=== PATIENT | male | born 1990 | race Caucasian/White ===

== ENCOUNTER 2020-12-01 12:22 | Emergency (ER) | payer MEDICAID, SELFPAY ==
[2020-12-01] VITALS (7 sets, daily range): BP systolic 143–149; BP diastolic 87–99; PULSE 95–139; RESP 16–109; TEMP 36.8; O2SAT 97–98
--- NOTE | ~2020-12-01 | CT_ITS ---
EXAMINATION: CT brain wo con DATE: 12/01/2020 13:39 INDICATION: Altered mental state. Hallucinations. TECHNIQUE: Computed tomography (CT) of the head was performed without intravenous contrast. The mA wa s adjusted according to patient size. Iterative reconstruction technique was employed. Exam dose: 60 5.33 mGy-cm total exam DLP. COMPARISON: None FINDINGS: No intracranial mass lesion or hemorrhage or cerebrovascular accident. No midline shift or mass effect. Normal ventricular size. No subdural or epidural hematoma. There is partial mild opacification of ethmoid air cells bilaterally. There is a 10 mm mucus retentio n cyst or polyp of the medial aspect of the right frontal lobe. No fracture or bone destruction of the cranial vault. IMPRESSION: No significant intracranial abnormality Reviewed, dictated and finalized at [facility]. Reviewed, dictated and finalized at location [facility].
--- NOTE | ~2020-12-01 | XR_ITS ---
EXAMINATION: XR hand LT min 3V DATE: 12/01/2020 14:08 INDICATION: Left hand pain and swelling TECHNIQUE: Posteroanterior, oblique and lateral views of the left hand were obtained. COMPARISON: None. FINDINGS: Alignment is normal however the second, third and particularly the fourth fingers remain partially fl exed. No fracture. Joint spaces are normal. There is soft tissue swelling dorsal to the metacarpophal angeal joints and distal metacarpals. No periosteal reaction or cortical erosions. There is a 2.4 x 0 .5 cm radiopaque foreign body projecting over the soft tissues at the volar aspect of the wrist. IMPRESSION: 1. 2.4 x 0.5 cm radiopaque foreign body projecting over the soft tissues at the volar aspect of the w rist with appearance suggesting enlargement of glass. Correlate for history of penetrating trauma. Reviewed, dictated and finalized at location [facility]. IMPRESSION: 1. 2.4 x 0.5 cm radiopaque foreign body projecting over the soft tissues at the volar aspect of the wrist with appearance suggesting enlargement of glass. Cor relate for history of penetrating trauma.
[2020-12-01 12:53] LABS: Basophils Percent Auto 0.2 % (0.2-1.2); Eosinophils Percent Auto 0.1 % (0-4.4); Hematocrit 45.2 % (42.0-52.0); Hemoglobin 15.6 g/dL (14.0-18.0); Immature Granulocyte Absolute 0.11 K/mm3 (0.00-0.031); Mean Corpuscular HGB Conc 34.5 g/dl (32-36); Mean Corpuscular Hemoglobin 32.8 pg (26-34); Mean Corpuscular Volume 95.2 fl (80-100); Mean Platelet Volume 9.2 fl (7.4-10.4); Monocytes Absolute Auto 0.8 K/mm3 (0.1-0.6); Monocytes Percent Auto 7.1 % (2.6-8.5); Neutrophils Absolute Auto 6.8 K/mm3 (1.3-6.7); Neutrophils Percent Auto 61.6 % (45.5-73.1); Platelet Count Result 227 k/mm3 (150-375); Red Blood Count 4.75 M/mm3 (4.6-6.20); Red Cell Distribution Width 12.2 % (11.5-14.5)
[2020-12-01 13:01] LABS: Alanine Aminotransferase 56 U/L (4-50); Albumin Level 4.7 g/dL (3.5-5.1); Alkaline Phosphatase 67 U/L (38-126); Anion Gap 16 mmol/L (8-16); Aspartate Amino Transferase 53 U/L (17-59); Bilirubin,Total 1.8 mg/dL (0.2-1.3); Blood Urea Nitrogen 5 mg/dL (9-20); Calcium 8.5 mg/dL (8.4-10.2); Carbon Dioxide 21 mmol/L (22-30); Chloride 100 mmol/L (98-107); Estimated CRCL calculation 149 ml/min; Estimated Glomerular Filt Rate > 60; Glucose 164 mg/dL (65-110); Potassium 2.8 mmol/L (3.4-5.0); Sodium 137 mmol/L (137-145)
--- NOTE | 2020-12-01 13:02 | ECG_ITS ---
Measurements Intervals [place] Rate: 102 P: 42 UT: 141 QRS: 20 QRSD: 101 T: 34 QT: 345 QTc: 451 Interpretive Statements SINUS TACHYCARDIA BASELINE ARTIFACT- II, III, AVR, AVL, AVF BORDERLINE ECG Electronically Signed On 12-02-2020 7:26:02 CDT by Da Lundberg D.O.
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
[2020-12-01 13:23] LABS: Glucose Point of Care 122 mg/dl (65-105)
--- NOTE | 2020-12-01 13:29 | PC.NURSE ---
Pt to CT scan via stretcher at this time.
[2020-12-01 13:34] LABS: Add Urine Microscopic? NO; Appearance Urine Clear (Clear); Bilirubin Urine Negative (Negative); Blood Urine Negative (Negative); Color Urine Colorless (Yellow); Glucose Urine UA Negative (Negative); Ketones Urine Negative (Negative); Leukocyte Esterase Ur Negative LEU/UL (Negative); Nitrate Urine Negative (Negative); Protein Urine Negative (Negative); Urobilinogen Urine Negative mg/dL (<2.0)
[2020-12-01 13:39] LABS: INR 0.9; Prothrombin Time 11.8 Seconds (11.1-14.7)
[2020-12-01 13:39] LABS: Ethanol 433 mg/dL (<10)
[2020-12-01 13:42] LABS: Specific Grav Ur 1.003 (1.001-1.035)
[2020-12-01 13:42] LABS: Magnesium 2.2 mg/dL (1.6-2.3); Phosphorus 2.9 mg/dL (2.5-4.5)
[2020-12-01] MEDS: LORazepam INJ (*CRX) 2 MG/ML VIAL 0.5 MG IV PUSH (13:45)
[2020-12-01 13:51] LABS: Amphetamine Screen Urine Negative (Negative); Barbiturate Screen Urine Negative (Negative); Benzodiazepines Screen Urine Negative (Negative); Cannabinoid Screen Urine Negative (Negative); Cocaine Screen Urine Negative (Negative); Methadone Screen Urine Negative (Negative); Opiate Screen Urine Negative (Negative); Phencyclidine Screen Urine Negative (Negative)
[2020-12-01] MEDS: THIAMINE HCL INJ 100 MG, FOLIC ACID INJ 1 MG, MULTIVITAMINS-12 INJ VIAL 1 5 ML, MULTIVI... 125 MG IV CONT (14:04)
[2020-12-01 14:17] LABS: CRP < 0.5 mg/dL (<1.0); Uric Acid 5.6 mg/dL (3.5-8.5)
[2020-12-01 14:38] LABS: Erythrocyte Sedimentation Rate 3 mm/hr (0-20)
--- NOTE | 2020-12-01 15:19 | PC.NURSE ---
Pt becoming agitated and trying to get up from stretcher, repeatedly says Ana got to get out of here. I dont wanna be here, I just dont want all of this. while holding up IV drips. This RN encouraged pt to stay in bed and would get the PA, Oneyda Shine PA-C and EDP Dr Carroll at bedside at this time to examine arm and discuss POC w/ pt. Pts father left and and plans to come back and ck on pt later. KCL and Thiamine cont to infuse in bilat IVs. Pt on tele monitor. VSS.
[2020-12-01] MEDS: POTASSIUM CHLORIDE 20 MEQ TABLET 40 MEQ PO (15:57)
== END 2020-12-01 17:00 | disposition left against medical advice (07) ==
PROVIDERS: Emergency Medicine; Physician Assistant; Emergency Provider Emergency Medicine
DX: E87.6 Hypokalemia (principal); F10.129 Alcohol abuse with intoxication, unspecified; Y90.8 Blood alcohol level of 240 mg/100 ml or more; R00.0 Tachycardia, unspecified
CPT/HCPCS: 36415; 70450; 73130; 80053; 80307; 81003; 82948; 83735; 84100; 84550; 85025; 85610; 85652; 86140; 93005; 96365; 96366; 96368; 96375; 99284; A9270; J2060; J3411; J3475; J3480; J7030

== ENCOUNTER 2020-12-01 23:53 | Inpatient (IN) | payer MEDICAID, SELFPAY ==
--- NOTE | ~2020-12-01 | XR_ITS ---
EXAMINATION: XR chest 1V portable DATE: 12/02/2020 00:25 INDICATION: Chest pain TECHNIQUE: frontal view of the chest was obtained. COMPARISON: None FINDINGS: The lungs are clear with no focal airspace opacities, pulmonary edema, pleural effusion or pneumothor ax. The cardiomediastinal silhouette is normal. Visualized bones and soft tissues are unremarkable. IMPRESSION: 1. Normal chest radiograph. Reviewed, dictated and finalized at location [facility]. IMPRESSION: 1. Normal chest radiograph.
--- NOTE | ~2020-12-01 | US_ITS ---
EXAMINATION: US abdomen limited DATE: 12/03/2020 09:29 INDICATION: Elevated liver function tests TECHNIQUE: Multiple grayscale and Doppler ultrasound images of the abdomen were obtained. COMPARISON: None available FINDINGS: Bowel gas obscures visualization of the pancreas. The visualized portions of the pancreas a re unremarkable. The liver is normal with normal echogenicity and echotexture. No surface nodularity. Normal hepatopetal flow in the main portal vein. The gallbladder is normal with no abnormal wall thi ckening, pericholecystic fluid or stones. The normal common bile duct measures 4 mm. There was no son ographic Costello sign. IMPRESSION: 1. Normal sonographic study of the gallbladder. Reviewed, dictated and finalized at location [facility].
[2020-12-01 23:54] VITALS: BP 137/94; PULSE 102; RESP 23; TEMP 37.3; O2SAT 94
[2020-12-02] VITALS (26 sets, daily range): BP systolic 111–162; BP diastolic 77–94; PULSE 83–136; RESP 16–34; TEMP 36.4–36.9; O2SAT 89–99; BMI 25.4
--- NOTE | 2020-12-02 | ECG_ITS ---
Rate 98 RI 148 QRSd 90 QT 347 QTc 445 --[place]-- P 53 QRS 37 T 47 SINUS RHYTHM NORMAL ECG Electronically Signed On 12-02-2020 9:13:14 CDT by Da MENESES
--- NOTE | 2020-12-02 00:18 | PC.NURSE ---
XY to room at this time.
--- NOTE | 2020-12-02 00:38 | ED.GENADULT ---
HPI - General Adult General Chief complaint: Alcohol Stated complaint: ETOH withdrawl Time Seen by Provider: 12/01/20 23:58 History of Present Illness HPI narrative: Patient 30-year-old gentleman who presents the emergency department with chief complaint of chest pain and alcohol withdrawal. The patient reports he decided to stop drinking and normally is drinking about 1/5 of hard liquor daily. Patient states his last drink was in the last 72hours although he was seen here earlier this morning and had a blood alcohol level that was significantly elevated. The patient states that he went home because he decided did not stay in the hospital and has proceeded to have chest discomfort and also has noticed that he has become more more tremulous and tachycardic. Patient denies seizure denies visual or auditory hallucinations. Patient denies suicidal or homicidal ideation. Related Data Home Medications Medication Instructions Recorded Confirmed No Home Medications 12/01/20 12/01/20 Allergies Allergy/AdvReac Type Severity Reaction Status Date / Time aspirin Allergy Unknown Verified 12/02/20 00:15 Penicillins Allergy Unknown Verified 12/02/20 00:15 Review of Systems Review of Systems: Narrative: A 10 system review of systems was completed on the patient and is negative except for what is stated in the HPI. Nursing and ancillary documentation was reviewed. [facility] Past Medical History Medical History History of alcohol abuse Social History Social History Alcohol intake: current Gender identity (if verbalized by the patient): Male Exam Narrative: Exam Narrative: GENERAL: Well-appearing, well-nourished, and in no acute distress. HEAD: Normocephalic, atraumatic. EYES: PERRLA and EOMI. ENT: Nares clear, no rhinorrhea or epistaxis. Mucous membranes moist. NECK: Supple. CHEST: Clear to auscultation. No respiratory distress. HEART: Regular rate and rhythm. No murmur heard. Normal peripheral pulses. ABDOMEN: Soft, nontender, nondistended, normal active bowel sounds. EXTREMITIES: Normal range of motion. No edema. SKIN: Warm, dry, no rash. NEURO: No focal deficits. Alert and oriented x3. PSYCH: Normal mood and affect. Course Vital Signs Vital signs: Vital Signs Temperature 37.3 C 12/01/20 23:54 Pulse Rate 102 H 12/01/20 23:54 Respiratory Rate 23 H 12/01/20 23:54 Blood Pressure 137/94 H 12/01/20 23:54 Pulse Oximetry 94 12/01/20 23:54 Temperature 37.3 C 12/01/20 23:54 Pulse Rate 102 H 12/01/20 23:54 Respiratory Rate 23 H 12/01/20 23:54 Blood Pressure 137/94 H 12/01/20 23:54 Pulse Oximetry 94 12/01/20 23:54 Medical Decision Making Vital Signs Vital Signs: Vital Signs Temperature 37.3 C 12/01/20 23:54 Pulse Rate 102 H 12/01/20 23:54 Respiratory Rate 23 H 12/01/20 23:54 Blood Pressure 137/94 H 12/01/20 23:54 Pulse Oximetry 94 12/01/20 23:54 Temperature 37.3 C 12/01/20 23:54 Pulse Rate 102 H 12/01/20 23:54 Respiratory Rate 23 H 12/01/20 23:54 Blood Pressure 137/94 H 12/01/20 23:54 Pulse Oximetry 94 12/01/20 23:54 Lab Data Result diagrams: 12/02/20 00:31 12/02/20 00:31 Labs: Lab Results 12/02/20 12/02/20 12/02/20 Range/Units 00:31 00:31 00:31 WBC 11.1 H (4.5-10.0) K/mm3 RBC 4.41 L (4.6-6.20) M/mm3 Hgb 14.7 (14.0-18.0) g/dL Hct 41.6 L (42.0-52.0) % MCV 94.3 (80-100) fl MCH 33.3 (26-34) pg MCHC 35.3 (32-36) g/dl RDW 12.2 (11.5-14.5) % Plt Count 191 (150-375) k/mm3 MPV 8.8 (7.4-10.4) fl Immature Gran % (Auto) 0.4 (0-0.5) % Neut % (Auto) 63.7 (45.5-73.1) % Lymph % (Auto) 27.1 (18.3-44.2) % [place] % (Auto) 8.3 (2.6-8.5) % Eos % (Auto) 0.1 (0-4.4) % Baso % (Auto) 0.4 (0.2-1.2) % Lymph # (Auto) 3.00 (0.9-
[2020-12-02] MEDS: SODIUM CHLORIDE 0.9% IV 1,000 ML 999 ML IV CONT ×2 (00:40→01:35)
[2020-12-02] MEDS: LORazepam INJ (*CRX) 2 MG/ML VIAL 1 MG IV PUSH ×5 (00:42→19:37)
[2020-12-02] MEDS: ONDANSETRON INJ 4 MG/2 ML VIAL IV PUSH ×4 (00:42→10:27)
[2020-12-02 00:43] LABS: Basophils Percent Auto 0.4 % (0.2-1.2); Eosinophils Percent Auto 0.1 % (0-4.4); Hematocrit 41.6 % (42.0-52.0); Hemoglobin 14.7 g/dL (14.0-18.0); Immature Granulocyte Absolute 0.04 K/mm3 (0.00-0.031); Immature Granulocyte Percent A 0.4 % (0-0.5); Lymphocytes Percent Auto 27.1 % (18.3-44.2); Mean Corpuscular HGB Conc 35.3 g/dl (32-36); Mean Corpuscular Hemoglobin 33.3 pg (26-34); Mean Corpuscular Volume 94.3 fl (80-100); Mean Platelet Volume 8.8 fl (7.4-10.4); Monocytes Absolute Auto 0.9 K/mm3 (0.1-0.6); Monocytes Percent Auto 8.3 % (2.6-8.5); Neutrophils Absolute Auto 7.1 K/mm3 (1.3-6.7); Neutrophils Percent Auto 63.7 % (45.5-73.1); Platelet Count Result 191 k/mm3 (150-375); Red Blood Count 4.41 M/mm3 (4.6-6.20); Red Cell Distribution Width 12.2 % (11.5-14.5); White Blood Count 11.1 K/mm3 (4.5-10.0)
[2020-12-02 00:51] LABS: Ethanol 221 mg/dL (<10)
[2020-12-02 00:53] LABS: Alanine Aminotransferase 59 U/L (4-50); Albumin Level 4.4 g/dL (3.5-5.1); Alkaline Phosphatase 65 U/L (38-126); Anion Gap 13 mmol/L (8-16); Aspartate Amino Transferase 77 U/L (17-59); Bilirubin,Total 2.2 mg/dL (0.2-1.3); Blood Urea Nitrogen 5 mg/dL (9-20); Calcium 8.8 mg/dL (8.4-10.2); Carbon Dioxide 23 mmol/L (22-30); Chloride 97 mmol/L (98-107); Estimated Glomerular Filt Rate > 60; Glucose 138 mg/dL (65-110); Lipase 242 U/L (23-300); Magnesium 1.9 mg/dL (1.6-2.3); Potassium 2.9 mmol/L (3.4-5.0); Sodium 133 mmol/L (137-145)
[2020-12-02 00:55] LABS: Lactic Acid Reflex 3.3 mmol/L (0.7-2.1)
[2020-12-02 01:05] LABS: Troponin I < 0.012 ng/mL (0.000-0.034)
[2020-12-02] MEDS: THIAMINE HCL 200 MG/2 ML VIAL 100 MG IV PUSH (01:30)
--- NOTE | 2020-12-02 01:49 | PC.NURSE ---
Potassium chloride admin verified with JACEK Deleon.
--- NOTE | 2020-12-02 02:09 | PM.IMHP ---
H&P: HPI History of Present Illness Date/Time: 12/02/20 02:09 Chief Complaint: TREMORS Narrative: THIS IS A 30-YEAR-OLD MALE WITH PAST MEDICAL HISTORY SIGNIFICANT FOR ALCOHOL DEPENDENCE, TOBACCO DEPENDENCE. PATIENT PRESENTED EARLIER TO THE EMERGENCY ROOM THE DAY BEFORE STATING THAT HE WANTED TO QUIT ALCOHOL AND HE ENDED UP LEAVING TO LATER COME BACK DUE TO WORSENING TREMORS , NAUSEA AND VOMITING. PRELIMINARY WORKUP SHOWED A ALCOHOL LEVEL OF 400 WHEN INITIALLY CAME TO THE EMERGENCY ROOM. AT THE TIME OF MY VISIT TO GO HOME PATIENT WAS VOMITING AND VERY UNCOMFORTABLE. HE DENIES ANY FEVERS CHILLS OR RIGORS. 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 STATES THAT HE WANTS TO QUIT FOR GOOD. HE WAS ALSO FOUND TO BE VERY TACHYCARDIC AND TREMULOUS. Review of Systems Review of Systems: Narrative: TREMORS NAUSEA VOMITING Constitutional: Constitutional: Denies chills, Denies fatigue and Denies fever(s) Eyes: Eyes: Denies change in vision ENT: Denies dysphagia, Denies nasal congestion, Denies nasal discharge, Denies nasal obstruction and Denies odynophagia Cardiovascular: Cardiovascular: Reports rapid heart rate, Denies irregular heart rhythm, Denies lightheadedness, Denies radiating jaw, neck or arm pain and Denies dyspnea Respiratory: Respiratory: Denies cough and Denies dyspnea Gastrointestinal: Gastrointestinal: Denies abdominal pain, Reports nausea and Reports vomiting Genitourinary: Genitourinary: Reports no additional male genitourinary complaints Musculoskeletal: Musculoskeletal: Reports no additional musculoskeletal complaints Integumentary/Breasts: Skin/Breast: Reports system reviewed and no additional complaints, except as docu Neurologic: Comments: TREMORS Psychiatric: Psychiatric: Reports no additional psychiatric complaints Endocrine: Endocrine: Reports no additional endocrine complaints Hematologic/Lymphatic: Hematologic/Lymphatic: Reports no additional hematologic/lymphatic complaints Allergic/Immunologic: Allergic/Immunologic: Reports no additional allergic/immunologic complaints [facility] Past Medical History Medical History History of alcohol abuse Social History Social History Alcohol intake: current Gender identity (if verbalized by the patient): Male Meds Home Medications and Allergies Home Medications Medication Instructions Recorded Confirmed Type No Home Medications 12/01/20 12/01/20 History Allergies Allergy/AdvReac Type Severity Reaction Status Date / Time aspirin Allergy Unknown Verified 12/02/20 00:15 Penicillins Allergy Unknown Verified 12/02/20 00:15 Vital Signs Vital Signs - 24 hr 12/01/20 23:54 Temperature 99.1 F Pulse Rate 102 H Respiratory Rate 23 H Blood Pressure 137/94 H Pulse Oximetry 94 Exam Narrative: Exam Narrative: SITTING IN THE [place] [facility] Const: General: comfortable, well developed, alert, awake and in distress ( VOMITING) Nutritional Appearance: average body habitus Orientation/consciousness: patient oriented x3 HENMT: Head: normal to inspection, normocephalic and atraumatic Ears: hearing grossly normal bilaterally General nose exam: Normal external nose present Face and sinus: normal facial exam Eyes: General: appearance normal, both eyes and all related structures Sclera: sclerae normal Pupils: Equal, round and reactive pupils present EOM: EOMs intact bilaterally Neck: Neck: full ROM, no lymphadenopathy and no JVD Thyroid: thyroid normal Lymphatic: no lymphadenopathy noted Resp: Effort & Inspection: normal respiratory effort and able to speak in complete sentences Auscultation: clear to auscultation bilaterally Cardio: Jugular venous distension: no JVD Rate: tachycardic Rhythm: regular rhythm Heart sounds: S1 normal heart sound present and S2 normal heart sound present GI: Inspection: normal to inspection GI Palp:
[2020-12-02] MEDS: THIAMINE HCL INJ 100 MG, FOLIC ACID INJ 1 MG, MULTIVITAMINS-12 INJ VIAL 1 5 ML, MULTIVI... IV CONT (02:49)
--- NOTE | 2020-12-02 03:14 | PC.NURSE ---
Potassium chloride rate change for patient comfort.
[2020-12-02 03:37] LABS: Reflex Lactic Acid Yes or No Add Lactic
[2020-12-02 04:04] LABS: Lactic Acid 1.9 mmol/L (0.7-2.1)
--- NOTE | 2020-12-02 04:20 | ADMGEN ---
This patient, Samy Luke, was admitted to Intensive Care Unit-1. Patient/family oriented to hospital policies and general routines including ID bracelet, bed and alarms, visiting hours, pain management, procedures, bathroom and other care routines, personal items, smoking policy, room service/diet, and visiting hours. Information on how to activate the Rapid Response Team has been discussed. Patient/Family are encouraged to report perceived risks to care and to ask questions if they do not understand what they are told or what they should do.
[2020-12-02] MEDS: chlordiazePOXIDE (*CRX) 25 MG CAPSULE 50 MG PO ×3 (05:04→18:33)
[2020-12-02] MEDS: chlordiazePOXIDE (*CRX) 25 MG CAPSULE PO (05:05)
[2020-12-02] MEDS: LACTATED RINGERS 1,000 ML 999 ML IV CONT (08:21)
--- NOTE | 2020-12-02 09:43 | PM.IMPN ---
Progress Note: A&P Assessment and Plan (1) EtOH dependence: Code(s): F10.20 - Alcohol dependence, uncomplicated Status: Acute Assessment and Plan: patient states he drinks about 2/5 of hard liquor daily and has been trying to stop drinking. In the ED patient stated his last drink was about 72 hours prior to admission. He stated he has not had a drink for 2 days. - Patient's initial alcohol levels were 433 - patient may be undergoing alcohol intoxication and withdrawals (2) Alcohol withdrawal syndrome: Qualifiers: Complication of substance-induced condition: uncomplicated Qualified Code(s): F10.230 - Alcohol dependence with withdrawal, uncomplicated Code(s): F10.239 - Alcohol dependence with withdrawal, unspecified Status: Acute Assessment and Plan: continue CIWA score - patient on Librium 50 mg q.6 hours - IV Ativan as need - if CIWA scores worsened patient becomes more agitated or anxious may require Precedex infusion - monitor closely for DTs (3) Tobacco dependence: Code(s): F17.200 - Nicotine dependence, unspecified, uncomplicated Status: Acute Assessment and Plan: patient states he smokes about a pack a day of tobacco - denies any marijuana use - counseled patient on cessation, stated he has to 1st quit drinking (4) Acute hypokalemia: Code(s): E87.6 - Hypokalemia Status: Acute Assessment and Plan: potassium was repleted, will check CMP at noon today. (5) Nausea and vomiting: Code(s): R11.2 - Nausea with vomiting, unspecified Status: Acute Assessment and Plan: Resolved - Zofran p.r.n. Additional Plan code status full code. This dictation may have been done utilizing a voice recognition system. Attempts have been made to correct errors. However, there may be uncorrected grammatical, spelling, and recognition errors present. Due to a high probability of clinically significant, life threatening deterioration, the patient required my highest level of preparedness to intervene emergently and I personally spent this critical care time directly and personally managing the patient. This critical care time included obtaining a history; examining the patient; pulse oximetry; ordering and review of studies; arranging urgent treatment with development of a management plan; evaluation of patient's response to treatment; frequent reassessment; and discussions with other providers. It was exclusive of separately billable procedures and treating other patients and teaching time. Please see Assessment and Plan section and the rest of the note for further information on patient assessment and treatment Subjective Date/time seen: 12/02/20 09:43 Interval history: The atrial male with past medical history of alcohol dependence and tobacco dependence presented with alcohol intoxication and withdrawal. Patient seen and examined this morning, has been requiring intermittent Ativan. CIWA score was 22 this morning. Patient is tremulous, awake answers to questions states he smokes about 1 packet per day of cigarettes, denies any illicit drug use. Denies any chest pain, abdominal pain, nausea, vomiting at this time Review of Systems Review of Systems: All systems reviewed & are unremarkable except as noted in HPI and below Exam Const: General: comfortable and no acute distress HENMT: Mouth: Yes moist mucous membranes Eyes: Sclera: sclerae normal Pupils: Equal, round and reactive pupils present Neck: Neck: no JVD Thyroid: thyroid normal Lymphatic: lymphadenopathy not noted Resp: Effort & Inspection: normal respiratory effort Auscultation: clear to auscultation bilaterally Cardio: Rate: regular rate Rhythm: regular rhythm GI: Inspection: non-distended GI Palp: Yes Soft to palpation and No Tenderness to palpation present (GI) Auscultation: normal bowel sounds : Other: deferred Urinary Catheter: Urina
[2020-12-02 11:58] LABS: Alanine Aminotransferase 72 U/L (4-50); Albumin Level 3.8 g/dL (3.5-5.1); Alkaline Phosphatase 58 U/L (38-126); Anion Gap 5 mmol/L (8-16); Aspartate Amino Transferase 104 U/L (17-59); Bilirubin,Total 3.6 mg/dL (0.2-1.3); Blood Urea Nitrogen 4 mg/dL (9-20); Calcium 8.3 mg/dL (8.4-10.2); Carbon Dioxide 26 mmol/L (22-30); Chloride 103 mmol/L (98-107); Estimated CRCL calculation 171 ml/min; Estimated Glomerular Filt Rate > 60; Glucose 106 mg/dL (65-110); Potassium 3.5 mmol/L (3.4-5.0); Sodium 134 mmol/L (137-145)
--- NOTE | 2020-12-02 14:17 | PCNSR ---
On 12/02/20, the student, Josette Leary, provided care and completed [place] documentation on this patient. I have reviewed the student's documentation and agree with the findings. In addition, agree with folic acid and thiamine supplementation. Noted potassium has been replaced. Ensure Compact (220kcal, 9g protein) is being ordered BID which is appropriate.
[2020-12-03] VITALS (10 sets, daily range): BP systolic 96–123; BP diastolic 72–91; PULSE 86–158; RESP 16–20; TEMP 36.4–37.2; O2SAT 94–98
[2020-12-03] MEDS: chlordiazePOXIDE (*CRX) 25 MG CAPSULE 50 MG PO ×3 (00:16→11:56)
[2020-12-03] MEDS: ONDANSETRON INJ 4 MG/2 ML VIAL IV PUSH (04:16)
[2020-12-03] MEDS: SODIUM CHLORIDE 0.9% IV 1,000 ML 999 ML IV CONT (04:16)
[2020-12-03] MEDS: LORazepam INJ (*CRX) 2 MG/ML VIAL 1 MG IV PUSH (04:16)
[2020-12-03 04:26] LABS: Basophils Percent Auto 0.3 % (0.2-1.2); Eosinophils Absolute Auto 0.2 K/mm3 (0-0.3); Eosinophils Percent Auto 2.4 % (0-4.4); Hemoglobin 14.7 g/dL (14.0-18.0); Immature Granulocyte Absolute 0.02 K/mm3 (0.00-0.031); Immature Granulocyte Percent A 0.3 % (0-0.5); Lymphocytes Absolute Auto 1.79 K/mm3 (0.9-3.2); Lymphocytes Percent Auto 25.3 % (18.3-44.2); Mean Corpuscular HGB Conc 34.2 g/dl (32-36); Mean Corpuscular Hemoglobin 33.2 pg (26-34); Mean Corpuscular Volume 97.1 fl (80-100); Mean Platelet Volume 9.4 fl (7.4-10.4); Monocytes Absolute Auto 0.5 K/mm3 (0.1-0.6); Monocytes Percent Auto 7.1 % (2.6-8.5); Neutrophils Absolute Auto 4.6 K/mm3 (1.3-6.7); Neutrophils Percent Auto 64.6 % (45.5-73.1); Platelet Count Result 144 k/mm3 (150-375); Red Blood Count 4.43 M/mm3 (4.6-6.20); Red Cell Distribution Width 12.1 % (11.5-14.5); White Blood Count 7.1 K/mm3 (4.5-10.0)
[2020-12-03 04:41] LABS: Alanine Aminotransferase 107 U/L (4-50); Albumin Level 4.2 g/dL (3.5-5.1); Alkaline Phosphatase 100 U/L (38-126); Anion Gap 7 mmol/L (8-16); Aspartate Amino Transferase 147 U/L (17-59); Bilirubin,Total 5.1 mg/dL (0.2-1.3); Blood Urea Nitrogen 5 mg/dL (9-20); Calcium 8.8 mg/dL (8.4-10.2); Carbon Dioxide 25 mmol/L (22-30); Chloride 104 mmol/L (98-107); Estimated CRCL calculation 131 ml/min; Estimated Glomerular Filt Rate > 60; Glucose 114 mg/dL (65-110); Lipase 208 U/L (23-300); Magnesium 2.1 mg/dL (1.6-2.3); Phosphorus 3.5 mg/dL (2.5-4.5); Potassium 3.3 mmol/L (3.4-5.0); Sodium 136 mmol/L (137-145)
[2020-12-03] MEDS: POTASSIUM CHLORIDE 20 MEQ TABLET 40 MEQ PO (08:17)
[2020-12-03] MEDS: FOLIC ACID 1 MG/0.2 ML INJ IV PUSH (08:17)
[2020-12-03] MEDS: THIAMINE HCL 200 MG/2 ML VIAL 100 MG IV PUSH (08:18)
[2020-12-03] MEDS: SODIUM CHLORIDE 0.9% IV 500 ML IV CONT (08:24)
[2020-12-03] MEDS: LACTATED RINGERS 1,000 ML 100 ML IV CONT (08:25)
[2020-12-03 08:49] LABS: Hepatitis B Surface Antigen Negative (Negative)
[2020-12-03 08:55] LABS: HAV RESULT Negative (Negative); Hepatitis B Core IgM Result Negative (Negative)
[2020-12-03 09:06] LABS: Hepatitis C Virus Antibody Negative (Negative)
--- NOTE | 2020-12-03 09:47 | PM.IMPN ---
Progress Note: A&P Assessment and Plan (1) EtOH dependence: Code(s): F10.20 - Alcohol dependence, uncomplicated Status: Acute Assessment and Plan: patient states he drinks about 2/5 of hard liquor daily and has been trying to stop drinking. In the ED patient stated his last drink was about 72 hours prior to admission. He stated he has not had a drink for 2 days. - Patient's initial alcohol levels were 433 - patient may be undergoing alcohol intoxication and withdrawals - feels better today, receive 3 doses of ativan since yesterday (2) Alcohol withdrawal syndrome: Qualifiers: Complication of substance-induced condition: uncomplicated Qualified Code(s): F10.230 - Alcohol dependence with withdrawal, uncomplicated Code(s): F10.239 - Alcohol dependence with withdrawal, unspecified Status: Acute Assessment and Plan: continue CIWA score - patient on Librium 50 mg q.6 hours - IV Ativan as need - if CIWA scores worsened patient becomes more agitated or anxious may require Precedex infusion - monitor closely for DTs (3) Tobacco dependence: Code(s): F17.200 - Nicotine dependence, unspecified, uncomplicated Status: Acute Assessment and Plan: patient states he smokes about a pack a day of tobacco - denies any marijuana use - counseled patient on cessation, stated he has to 1st quit drinking (4) Acute hypokalemia: Code(s): E87.6 - Hypokalemia Status: Acute Assessment and Plan: will replete potassium (5) Nausea and vomiting: Code(s): R11.2 - Nausea with vomiting, unspecified Status: Acute Assessment and Plan: Resolved - Zofran p.r.n. Additional Plan discussed with patient updated with his condition and plan of care. Code status full code Disposition: Patient can transferred to medical floor Subjective Date/time seen: 12/03/20 09:47 Interval history: Interval history: The atrial male with past medical history of alcohol dependence and tobacco dependence presented with alcohol intoxication and withdrawal. 12/03/2020: Pt seen and examined. sitting up in chair feeling better, pt has received 3 doses of ativan since yesterday CIWA scores have been low. Notrmeors noted. Patient seen and examined this morning, has been requiring intermittent Ativan. CIWA score was 22 this morning. Patient is tremulous, awake answers to questions states he smokes about 1 packet per day of cigarettes, denies any illicit drug use. Denies any chest pain, abdominal pain, nausea, vomiting at this time. Good UO. pt does get tachycardic intermittently. Denies chest pain, SOB, N/V, abd pain Review of Systems Review of Systems: All systems reviewed & are unremarkable except as noted in HPI and below Exam Const: General: comfortable and no acute distress HENMT: Mouth: Yes moist mucous membranes Eyes: Sclera: sclerae normal Pupils: Equal, round and reactive pupils present Neck: Neck: no JVD Thyroid: thyroid normal Lymphatic: lymphadenopathy not noted Resp: Effort & Inspection: normal respiratory effort Auscultation: clear to auscultation bilaterally Cardio: Rate: regular rate Rhythm: regular rhythm GI: Inspection: non-distended GI Palp: Yes Soft to palpation and No Tenderness to palpation present (GI) Auscultation: normal bowel sounds : Other: deferred Urinary Catheter: Urinary Catheter: urine clear Skin: General skin exam: normal color and no rashes or lesions noted Neuro: Cranial nerves: Yes Equal, round and reactive pupils present Other: Pt awake, alert, oriented. non focal Extrem: General: normal to inspection, no edema and no pedal edema Psych: Mental Status: mental status grossly normal Affect: normal affect Objective Data Vital Signs Vital Signs: Vital Signs - 24 hr 12/02/20 10:00 12/02/20 12:00 12/02/20 14:00 Temperature Pulse Rate 83 83 94 Pulse Rate [Bilateral Pedal (Dorsalis Pedis) Pa
[2020-12-03] MEDS: HYDROcodone/acetaminophen (*CRX) 5-325 MG TABLET 1 TAB PO ×2 (11:56→17:04)
--- NOTE | 2020-12-03 12:35 | PC.NURSE ---
This patient, Samy Luke, was transferred to [[id number]] on 12/03/20 at 1235. Personal belongings sent with patient. Report given to [RANDALL READ]. Appropriate documentation sent with patient.
--- NOTE | 2020-12-03 13:38 | PCNFU ---
Nutrition Follow-Up Complete: Inadequate oral food intake related to alcohol withdraw as evidence by refusal of breakfast and incoherent mental status. Meet estimated nutritional needs. Patient is meeting current goal. Will continue to meet goal. Pt current nutrition is Regular. Last recorded weight is 84.8 kg. 12/02/20 85.2 kg per EMR. Bowel Motility: Last BM: 12/03 x4 Labs Reviewed: Hgb 14.7, Hct 41.6, Alb 4.4, Na 133, K 2.9, BUN 5, Cr .7, Glu 138 Meds Noted: [place], Librium, Folic Acid, Lactate Ringer's @ 100 mls/hr, Ativan, Zofran, Thiamine. Additional Notes: Saw patient when he was in the ICU. Patient reports having a poor appetite due to nausea and vomiting upon arrival to the hospital. Patient is unaware of any weight changes. Appetite has improved and 100% of meals are being consumed. No skin break down. Will continue to monitor weight, bowel motility and meal consumption. Follow up in 5 days.
--- NOTE | 2020-12-03 13:56 | PCNSR ---
On 12/03/20, the student, Josette Leary, provided care and completed SeeJay documentation on this patient. I have reviewed the student's documentation and agree with the findings. Potassium replacement continues.
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
--- NOTE | 2020-12-03 19:53 | PC.NURSE ---
1750 patient leaving AMA. patient states having all belongings and that he has a ride in the parking lot. patient is aware that by leaving ama he will not get any scripts or instructions. pvu.
== END 2020-12-03 17:50 | disposition left against medical advice (07) | DRG 770 ==
LOC: ANHED 12-02 01:51 → ANHICU 12-02 15:56 → ANH3MEDSUR 12-04 12:45 → ANHICU 12-04 12:45
PROVIDERS: Internal Medicine; Admitting Provider Internal Medicine; Emergency Provider Emergency Medicine; Visit Provider Family Medicine
DX: F10.230 Alcohol dependence with withdrawal, uncomplicated (principal); F10.229 Alcohol dependence with intoxication, unspecified; Y90.9 Presence of alcohol in blood, level not specified; E87.6 Hypokalemia; R11.2 Nausea with vomiting, unspecified; F17.210 Nicotine dependence, cigarettes, uncomplicated
CPT/HCPCS: 36415; 71045; 76705; 80053; 80074; 80307; 83605; 83690; 83735; 84100; 84484; 85025; 93005; 96361; 96374; 96375; 99285; A9270; J2060; J2405; J3411; J3475; J3480; J7030; J7040; J7060; J7120; J7121

== ENCOUNTER 2021-01-25 13:49 | Emergency (ER) | payer OTHER, SELFPAY ==
[2021-01-25 13:57] VITALS: BP 125/89; PULSE 133; RESP 18; TEMP 36.4; O2SAT 96
[2021-01-25 14:24] LABS: Basophils Percent Auto 0.2 % (0.2-1.2); Eosinophils Absolute Auto 1.1 K/mm3 (0-0.3); Eosinophils Percent Auto 8.9 % (0-4.4); Hematocrit 51.4 % (42.0-52.0); Hemoglobin 18.2 g/dL (14.0-18.0); Immature Granulocyte Absolute 0.03 K/mm3 (0.00-0.031); Immature Granulocyte Percent A 0.2 % (0-0.5); Lymphocytes Absolute Auto 3.29 K/mm3 (0.9-3.2); Lymphocytes Percent Auto 27.1 % (18.3-44.2); Mean Corpuscular HGB Conc 35.4 g/dl (32-36); Mean Corpuscular Hemoglobin 34.3 pg (26-34); Mean Platelet Volume 9.4 fl (7.4-10.4); Monocytes Absolute Auto 1.1 K/mm3 (0.1-0.6); Neutrophils Absolute Auto 6.6 K/mm3 (1.3-6.7); Neutrophils Percent Auto 54.6 % (45.5-73.1); Platelet Count Result 243 k/mm3 (150-375); Red Cell Distribution Width 12.9 % (11.5-14.5); White Blood Count 12.2 K/mm3 (4.5-10.0)
[2021-01-25 14:27] VITALS: BP 144/105; PULSE 112; RESP 20; O2SAT 97
[2021-01-25 14:44] LABS: Alanine Aminotransferase 34 U/L (4-50); Albumin Level 4.9 g/dL (3.5-5.1); Alkaline Phosphatase 90 U/L (38-126); Anion Gap 17 mmol/L (8-16); Aspartate Amino Transferase 45 U/L (17-59); Bilirubin,Total 2.9 mg/dL (0.2-1.3); Blood Urea Nitrogen 3 mg/dL (9-20); Calcium 9.1 mg/dL (8.4-10.2); Carbon Dioxide 28 mmol/L (22-30); Chloride 97 mmol/L (98-107); Estimated CRCL calculation 152 ml/min; Estimated Glomerular Filt Rate > 60; Glucose 122 mg/dL (65-110); Potassium 3.1 mmol/L (3.4-5.0); Sodium 142 mmol/L (137-145)
[2021-01-25] MEDS: ONDANSETRON INJ 4 MG/2 ML VIAL IV PUSH (15:30)
[2021-01-25] MEDS: SODIUM CHLORIDE 0.9% IV 1,000 ML 999 ML IV CONT (15:30)
[2021-01-25 15:50] LABS: INR 0.8; Prothrombin Time 11.2 Seconds (11.1-14.7)
[2021-01-25 15:51] LABS: Partial Thromboplastin Time 28.7 SECONDS (22.3-36.8)
[2021-01-25 16:25] VITALS: BP 122/89; PULSE 110; RESP 20; O2SAT 99
--- NOTE | 2021-01-25 16:39 | PC.NURSE ---
NTG PLACED AND IRRIGATED. CLEAR RETURN. NO BLOOD NOTED.
--- NOTE | 2021-01-25 17:12 | ED.NAVMDI ---
HPI - Nausea/Vomiting/Diarrhea General Chief complaint: Nausea/Vomiting/Diarrhea Stated complaint: vomiting blood x2 days Time Seen by Provider: 01/25/21 14:27 History of Present Illness HPI Narrative: Patient is a 31-year-old male who presents ER with reports of hematemesis. Reports has had 6 episodes over the last couple days where he is vomiting only bright red blood. Reports regular retching. Patient is an alcoholic and drinks 1/5 of hard liquor a day. Reports he has had about a pint today. No fevers or chills or sweats. Reports abdominal discomfort from the retching. No dark black stools. He has had some diarrhea with this. Related Data Allergies Allergy/AdvReac Type Severity Reaction Status Date / Time aspirin Allergy Unknown Verified 12/02/20 00:15 Penicillins Allergy Unknown Verified 12/02/20 00:15 Review of Systems Review of Systems: All systems reviewed & are unremarkable except as noted in HPI and below Constitutional: Constitutional: Denies chills, Denies fever(s) and Denies weakness ENT: Denies nasal congestion and Denies sore throat Respiratory: Respiratory: Denies cough, Denies dyspnea and Denies wheezing Gastrointestinal: Gastrointestinal: Reports abdominal pain, Denies bloating, Reports diarrhea, Reports nausea and Reports vomiting Genitourinary: Genitourinary: Denies dysuria and Denies urinary frequency PMFSH Past Medical History Medical History History of alcohol abuse Family History Family History (Updated 12/02/20 @ 04:51 by Sloane Rosenberg RN) Father Obese Mother Renal failure Social History Social History Smoking packs per day: 1 Smoking cigarettes per day: 20.0 Smoking status: Current every day smoker Tobacco type: cigarettes Alcohol intake: current Drinks per week: 32 Substance use: current Substance use type: marijuana Gender identity (if verbalized by the patient): Male Spiritual care concerns: No Exam Narrative: GENERAL: Well-appearing, well-nourished, and in no acute distress. HEAD: Normocephalic, atraumatic. ENT: Mucous membranes moist. CHEST: Clear to auscultation. No respiratory distress. HEART: Tachycardic and regular. Normal peripheral pulses. ABDOMEN: Soft, nontender, nondistended. EXTREMITIES: Normal range of motion. No edema. SKIN: Warm, dry, no rash. NEURO: Alert and oriented x3. PSYCH: Normal mood and affect. Course Course Emergency Course: Patient underwent NG lavage without return of any gross blood. Patient hemoconcentrated and received 1 L of IV fluid. She reports he is feeling better and does not wish to stay to receive a second liter of fluid. We will provide him with Protonix as well as antiemetics for home. Discussed alcohol cessation. Vital Signs Vital signs: Vital Signs Temperature 97.6 F 01/25/21 13:57 Pulse Rate 133 H 01/25/21 13:57 Respiratory Rate 18 01/25/21 13:57 Blood Pressure 125/89 01/25/21 13:57 Pulse Oximetry 96 01/25/21 13:57 Temperature 97.6 F 01/25/21 13:57 Pulse Rate 110 H 01/25/21 16:25 Respiratory Rate 20 01/25/21 16:25 Blood Pressure 122/89 01/25/21 16:25 Pulse Oximetry 99 01/25/21 16:25 MDM - Nausea/Vomiting/Diarrhea Lab Data Result diagrams: 01/25/21 14:16 01/25/21 14:16 Labs: Lab Results 01/25/21 01/25/21 01/25/21 Range/Units 14:16 14:16 14:16 WBC 12.2 H (4.5-10.0) K/mm3 RBC 5.30 (4.6-6.20) M/mm3 Hgb 18.2 H D (14.0-18.0) g/dL Hct 51.4 (42.0-52.0) % MCV 97.0 (80-100) fl MCH 34.3 H (26-34) pg MCHC 35.4 (32-36) g/dl RDW 12.9 (11.5-14.5) % Plt Count 243 D (150-375) k/mm3 MPV 9.4 (7.4-10.4) fl Immature Gran % (Auto) 0.2 (0-0.5) % Neut % (Auto) 54.6 (45.5-73.1) % Lymph % (Auto) 27.1 (18.3-44.2) % [place] % (Auto) 9.0 H (2.6-8.5) %
[2021-01-25 17:28] VITALS: BP 131/97; PULSE 90; RESP 14; O2SAT 95
== END 2021-01-25 17:29 | disposition home or self-care (01) ==
PROVIDERS: Emergency Provider Emergency Medicine; PCP Nurse Practitioner Psychiatric/Mental Health
DX: R11.2 Nausea with vomiting, unspecified (principal); F17.210 Nicotine dependence, cigarettes, uncomplicated
CPT/HCPCS: 36415; 80053; 85025; 85610; 85730; 86850; 86900; 86901; 96361; 96374; 99284; J2405; J7030

== ENCOUNTER 2021-01-26 09:09 | Observation (INO) | payer OTHER, SELFPAY ==
[2021-01-26] VITALS (7 sets, daily range): BP systolic 124–144; BP diastolic 83–96; PULSE 71–108; RESP 16–26; TEMP 36.6–37.3; O2SAT 97–100; BMI 24.0
--- NOTE | ~2021-01-26 | CT_ITS ---
EXAMINATION: CT chest high resolution wo pa DATE: 01/27/2021 10:01 INDICATION: Wheezing and cough TECHNIQUE: Computed tomography (CT) of the chest was performed without intravenous contrast. The dose -length product (DLP) was 233.12 mGy-cm. Automated exposure control and iterative reconstruction tech nique were employed. COMPARISON: 01/26/2021 FINDINGS: There is mild emphysema. Subtle centrilobular groundglass opacities are seen with an upper lung zone predominance. There is no pleural effusion or pneumothorax. No pathologically enlarged thor acic lymph nodes are identified. The heart size is normal. The visualized osseous structures are unre markable. Multiple cysts are again noted in the kidneys a various attenuation. Recommendations as on comparison. IMPRESSION: 1. Findings which could reflect respiratory bronchiolitis interstitial lung disease (RB-ILD). 2. Mild emphysema. Reviewed, dictated and finalized at location A. IMPRESSION: 1. Findings which could reflect respiratory bronchiolitis interstitial lung dis ease (RB-ILD). 2. Mild emphysema.
--- NOTE | ~2021-01-26 | XR_ITS ---
EXAMINATION: XR chest 2V DATE: 01/26/2021 09:50 INDICATION: Dizziness, nausea and vomiting TECHNIQUE: Frontal and lateral views of the chest are obtained COMPARISON: 12/02/2020 FINDINGS: The lungs are free of acute opacities. There is no pleural effusion or pneumothorax. The ca rdiomediastinal silhouette is normal. There is mild thoracic spondylosis. IMPRESSION: 1. No acute cardiopulmonary abnormality. Reviewed, dictated and finalized at location A.
--- NOTE | ~2021-01-26 | CT_ITS ---
EXAMINATION: CT abdomen pelvis w con INDICATION: Epigastric pain, elevated lipase, alcohol abuse TECHNIQUE: Computed tomographic images of the abdomen and pelvis were obtained after the administrati on of 100 cc of Omnipaque 350 intravenous contrast. The dose-length product (DLP) was 359.42 mGy-cm. Automated exposure control and iterative reconstruction technique were employed. COMPARISON: None available FINDINGS: Minimal dependent atelectasis is present in the lung bases. The heart size is normal. The l iver is diffusely low in attenuation when compared with the spleen which can be seen in the setting o f excess alcohol consumption. The spleen, pancreas, gallbladder, and adrenal glands are normal. There is a 5 mm nonobstructing stone of the left kidney lower pole. There are multiple cystic lesions of t he kidneys with attenuation ranging from simple fluid to hyperattenuating. No pathologically enlarged abdominal or pelvic lymph nodes are identified. There is no free intraperitoneal gas or evidence of bowel obstruction. IMPRESSION: 1. No CT correlate for the patient's symptoms. 2. Multiple cysts of various attenuation of the kidneys which could reflect polycystic kidney disease . Nonemergent follow-up by MRI without and with contrast is recommended. Reviewed, dictated and finalized at location A. IMPRESSION: 1. No CT correlate for the patient's symptoms. 2. Multiple cysts of various attenuation of the kidneys which could reflect isabell ycystic kidney disease. Nonemergent follow-up by MRI without and with contrast is recommended.
[2021-01-26 09:34] LABS: Basophils Percent Auto 0.3 % (0.2-1.2); Eosinophils Percent Auto 0.1 % (0-4.4); Hemoglobin 16.7 g/dL (14.0-18.0); Immature Granulocyte Absolute 0.03 K/mm3 (0.00-0.031); Immature Granulocyte Percent A 0.3 % (0-0.5); Lymphocytes Absolute Auto 2.12 K/mm3 (0.9-3.2); Lymphocytes Percent Auto 19.5 % (18.3-44.2); Mean Corpuscular HGB Conc 35.5 g/dl (32-36); Mean Corpuscular Hemoglobin 34.5 pg (26-34); Mean Corpuscular Volume 97.1 fl (80-100); Mean Platelet Volume 9.3 fl (7.4-10.4); Monocytes Absolute Auto 0.9 K/mm3 (0.1-0.6); Monocytes Percent Auto 8.4 % (2.6-8.5); Neutrophils Absolute Auto 7.8 K/mm3 (1.3-6.7); Neutrophils Percent Auto 71.4 % (45.5-73.1); Platelet Count Result 205 k/mm3 (150-375); Red Blood Count 4.84 M/mm3 (4.6-6.20); Red Cell Distribution Width 12.7 % (11.5-14.5); White Blood Count 10.9 K/mm3 (4.5-10.0)
--- NOTE | 2021-01-26 09:40 | ECG_ITS ---
Measurements Intervals [place] Rate: 88 P: 45 MT: 139 QRS: 35 QRSD: 97 T: 41 QT: 400 QTc: 485 Interpretive Statements SINUS RHYTHM NORMAL ECG Electronically Signed On 01-26-2021 12:04:59 CDT by Da Lundberg D.O.
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
[2021-01-26 09:46] LABS: INR 0.9
[2021-01-26 09:47] LABS: Partial Thromboplastin Time 28.2 SECONDS (22.3-36.8)
[2021-01-26] MEDS: PANTOPRAZOLE SODIUM IV 40 MG VIAL IV PUSH ×2 (09:56→20:39)
[2021-01-26] MEDS: diphenhydrAMINE HCl INJ 50 MG/ML VIAL 25 MG IV PUSH (09:56)
[2021-01-26] MEDS: METOCLOPRAMIDE HCL INJ 10 MG/2 ML VIAL IV PUSH (09:56)
[2021-01-26] MEDS: LORazepam INJ (*CRX) 2 MG/ML VIAL 0.5 MG IV PUSH (09:56)
[2021-01-26] MEDS: SODIUM CHLORIDE 0.9% IV 1,000 ML 999 ML IV CONT (09:56)
[2021-01-26 10:00] LABS: Alanine Aminotransferase 37 U/L (4-50); Albumin Level 4.4 g/dL (3.5-5.1); Alkaline Phosphatase 76 U/L (38-126); Anion Gap 17 mmol/L (8-16); Aspartate Amino Transferase 58 U/L (17-59); Bilirubin,Total 3.6 mg/dL (0.2-1.3); Blood Urea Nitrogen 3 mg/dL (9-20); Calcium 9.2 mg/dL (8.4-10.2); Carbon Dioxide 21 mmol/L (22-30); Chloride 97 mmol/L (98-107); Estimated CRCL calculation 152 ml/min; Estimated Glomerular Filt Rate > 60; Glucose 150 mg/dL (65-110); Lipase 360 U/L (23-300); Potassium 2.8 mmol/L (3.4-5.0); Sodium 135 mmol/L (137-145)
[2021-01-26 10:06] LABS: Ethanol 205 mg/dL (<10)
[2021-01-26 10:46] LABS: Add Urine Microscopic? NO; Appearance Urine Clear (Clear); Bilirubin Urine Negative (Negative); Blood Urine Negative (Negative); Color Urine Straw (Yellow); Glucose Urine UA Negative (Negative); Ketones Urine Negative (Negative); Leukocyte Esterase Ur Negative LEU/UL (Negative); Nitrate Urine Negative (Negative); Protein Urine Negative (Negative); Urobilinogen Urine Negative mg/dL (<2.0)
[2021-01-26 10:59] LABS: Specific Grav Ur 1.004 (1.001-1.035)
[2021-01-26 11:06] LABS: Magnesium 1.7 mg/dL (1.6-2.3)
[2021-01-26] MEDS: [UNRECOGNIZED DRUG - OTHER] IV CONT (13:34)
[2021-01-26] MEDS: FOLIC ACID IV CONT (13:34)
[2021-01-26] MEDS: MULTIVITAMINS IV CONT (13:34)
[2021-01-26] MEDS: THIAMINE HCL IV CONT (13:34)
[2021-01-26] MEDS: ACETAMINOPHEN 500 MG TABLET 1000 MG PO (13:37)
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
--- NOTE | 2021-01-26 16:34 | ADMGEN ---
This patient, Samy Luke, was admitted to IMU Room 207-01 at 1630 on 01/26/2021. Patient/family oriented to hospital policies and general routines including ID bracelet, bed and alarms, visiting hours, pain management, procedures, bathroom and other care routines, personal items, smoking policy, room service/diet, and visiting hours. Information on how to activate the Rapid Response Team has been discussed. Patient/Family are encouraged to report perceived risks to care and to ask questions if they do not understand what they are told or what they should do.
[2021-01-26] MEDS: LORazepam INJ (*CRX) 2 MG/ML VIAL 1 MG IV PUSH ×2 (16:45→23:52)
[2021-01-26] MEDS: ONDANSETRON INJ 4 MG/2 ML VIAL IV PUSH (16:46)
[2021-01-26] MEDS: NICOTINE (*PBKC) 14 MG PATCH 1 PATCH TRANSDERM (17:27)
[2021-01-26 18:57] LABS: Hematocrit 42.2 % (42.0-52.0); Hemoglobin 14.6 g/dL (14.0-18.0)
[2021-01-26] MEDS: chlordiazePOXIDE (*CRX) 10 MG CAPSULE PO (20:39)
[2021-01-27] VITALS (17 sets, daily range): BP systolic 120–148; BP diastolic 78–99; PULSE 67–109; RESP 12–25; TEMP 36.6–37.1; O2SAT 96–100; BMI 24.5
[2021-01-27 00:48] LABS: Hematocrit 42.3 % (42.0-52.0); Hemoglobin 14.6 g/dL (14.0-18.0)
[2021-01-27 00:58] LABS: Anion Gap 7 mmol/L (8-16); Blood Urea Nitrogen 3 mg/dL (9-20); Calcium 8.4 mg/dL (8.4-10.2); Carbon Dioxide 26 mmol/L (22-30); Chloride 101 mmol/L (98-107); Estimated CRCL calculation 174 ml/min; Estimated Glomerular Filt Rate > 60; Glucose 120 mg/dL (65-110); Potassium 2.9 mmol/L (3.4-5.0); Sodium 134 mmol/L (137-145)
[2021-01-27] MEDS: chlordiazePOXIDE (*CRX) 10 MG CAPSULE PO ×3 (03:06→20:38)
[2021-01-27 04:57] LABS: Basophils Percent Auto 0.4 % (0.2-1.2); Eosinophils Absolute Auto 0.1 K/mm3 (0-0.3); Eosinophils Percent Auto 0.9 % (0-4.4); Immature Granulocyte Absolute 0.02 K/mm3 (0.00-0.031); Immature Granulocyte Percent A 0.2 % (0-0.5); Immature Platelet Fraction Pct 4.8 % (0.9-11.2); Lymphocytes Absolute Auto 1.91 K/mm3 (0.9-3.2); Lymphocytes Percent Auto 22.6 % (18.3-44.2); Mean Corpuscular HGB Conc 34.1 g/dl (32-36); Mean Corpuscular Hemoglobin 34.6 pg (26-34); Mean Corpuscular Volume 101.4 fl (80-100); Monocytes Absolute Auto 0.5 K/mm3 (0.1-0.6); Monocytes Percent Auto 5.7 % (2.6-8.5); Neutrophils Absolute Auto 5.9 K/mm3 (1.3-6.7); Neutrophils Percent Auto 70.2 % (45.5-73.1); Platelet Count Result 151 k/mm3 (150-375); Red Blood Count 4.34 M/mm3 (4.6-6.20); Red Cell Distribution Width 12.7 % (11.5-14.5); White Blood Count 8.4 K/mm3 (4.5-10.0)
[2021-01-27 05:07] LABS: Lactic Acid Reflex 0.8 mmol/L (0.7-2.1)
[2021-01-27 05:11] LABS: Alanine Aminotransferase 31 U/L (4-50); Albumin Level 3.5 g/dL (3.5-5.1); Alkaline Phosphatase 68 U/L (38-126); Anion Gap 8 mmol/L (8-16); Aspartate Amino Transferase 43 U/L (17-59); Bilirubin,Total 4.9 mg/dL (0.2-1.3); Blood Urea Nitrogen 3 mg/dL (9-20); CRP < 0.5 mg/dL (<1.0); Calcium 8.5 mg/dL (8.4-10.2); Carbon Dioxide 27 mmol/L (22-30); Chloride 99 mmol/L (98-107); Estimated CRCL calculation 174 ml/min; Estimated Glomerular Filt Rate > 60; Glucose 116 mg/dL (65-110); Lactate Dehydrogenase 466 U/L (313-618); Potassium 3.2 mmol/L (3.4-5.0); Sodium 134 mmol/L (137-145)
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
--- NOTE | 2021-01-27 07:55 | WPDANESEPPF ---
Anes - Initial Pre Proc Eval Procedure: Operation Date: 01/27/21 11:30 Proposed Procedures p Esophagogastroduodenoscopy - Dionicio Finley MD Date/Time: 01/27/21 07:55 Surgeon: Benito Andrade MD Pre Op Diagnosis: Alcohol abuse, Hypokalemia, Dehydration Patient Data Age: 31 Gender: M Height: 1.85 m Weight: 84.4 kg Last Vital Signs Temp 36.8 C 01/27/21 04:00 Pulse 70 01/27/21 06:00 Resp 18 01/27/21 04:00 BP 137/91 H 01/27/21 04:00 Pulse Ox 99 01/27/21 04:00 Allergies Allergy/AdvReac Type Severity Reaction Status Date / Time aspirin Allergy Unknown Verified 12/02/20 00:15 Penicillins Allergy Unknown Verified 12/02/20 00:15 Home Medications Medication Instructions Recorded Confirmed Type ondansetron 4 mg PO Q6H PRN #10 tablet 01/25/21 01/26/21 Rx pantoprazole [Protonix] 40 mg PO HS #28 tablet 01/25/21 01/26/21 Rx Laboratory Tests 01/26/21 01/26/21 01/26/21 09:24 09:24 09:24 WBC 10.9 K/mm3 H K/mm3 (4.5-10.0) RBC 4.84 M/mm3 M/mm3 (4.6-6.20) Hgb 16.7 g/dL g/dL (14.0-18.0) Hct 47.0 % % (42.0-52.0) MCV 97.1 fl fl (80-100) MCH 34.5 pg H pg (26-34) MCHC 35.5 g/dl g/dl (32-36) RDW 12.7 % % (11.5-14.5) Plt Count 205 k/mm3 k/mm3 (150-375) MPV 9.3 fl fl (7.4-10.4) Immature Gran % (Auto) 0.3 % % (0-0.5) Neut % (Auto) 71.4 % % (45.5-73.1) Lymph % (Auto) 19.5 % % (18.3-44.2) [place] % (Auto) 8.4 % % (2.6-8.5) Eos % (Auto) 0.1 % % (0-4.4) Baso % (Auto) 0.3 % % (0.2-1.2) Lymph # (Auto) 2.12 K/mm3 K/mm3 (0.9-3.2) [place] # (Auto) 0.9 K/mm3 H K/mm3 (0.1-0.6) Eos # (Auto) 0.0 K/mm3 K/mm3 (0-0.3) Baso # (Auto) 0.0 K/mm3 K/mm3 (0.0-0.1) Abs Immat Gran (auto) 0.03 K/mm3 K/mm3 (0.00-0.031) Absolute Neuts (auto) 7.8 K/mm3 H K/mm3 (1.3-6.7) Absolute Nucleated RBC 0.0 K/mm3 K/mm3 (0.0-0.012) Nucleated RBC % 0.0 % % (0.0-0.2) % Immature Plt Fraction PT 12.0 Seconds Seconds (11.1-14.7) INR 0.9 APTT 28.2 SECONDS SECONDS (22.3-36.8) Sodium 135 mmol/L L mmol/L (137-145) Potassium 2.8 mmol/L L* mmol/L (3.4-5.0) Chloride 97 mmol/L L mmol/L (98-107) Carbon Dioxide 21 mmol/L L mmol/L (22-30) Anion Gap 17 mmol/L H mmol/L (8-16) BUN 3 mg/dL L mg/dL (9-20) Creatinine 0.70 mg/dL mg/dL (0.7-1.3) Estim Creat Clear Calc 152 ml/min ml/min Estimated GFR > 60 (59 - ) Glucose 150 mg/dL H mg/dL (65-110) Lactic Acid Calcium 9.2 mg/dL mg/dL (8.4-10.2) Magnesium Total Bilirubin 3.6 mg/dL H mg/dL (0.2-1.3) AST 58 U/L U/L (17-59) ALT 37 U/L U/L (4-50) Alkaline Phosphatase 76 U/L U/L (38-126) Lactate Dehydrogenase C-Reactive Protein Total Protein 8.0 g/dL g/dL (6.3-8.2) Albumin 4.4 g/dL g/dL (3.5-5.1) Lipase 360 U/L H U/L (23-300) TSH (Reflex) Urine Color Urine Appearance Urine pH Ur Specific [place] Urine Protein Urine Glucose (UA) Urine Ketones Ur Blood (Man) Urine Nitrate Urine Bilirubin Urine Urobilinogen Leukocyte Esterase Rfl Ethyl Alcohol 01/26/21 01/26/21 01/26/21 09:24 09:39 10:15 WBC RBC Hgb Hct MCV MCH MCHC RDW Plt Count MPV Immature Gran % (Auto) Neut % (Auto) Lymph % (Auto) [place] % (Auto)
[2021-01-27] MEDS: FOLIC ACID 1 MG TABLET PO (09:32)
[2021-01-27] MEDS: THIAMINE HCL 100 MG TABLET PO (09:32)
[2021-01-27] MEDS: NICOTINE (*PBKC) 14 MG PATCH 1 PATCH TRANSDERM (09:34)
[2021-01-27] MEDS: PANTOPRAZOLE SODIUM IV 40 MG VIAL IV PUSH ×2 (09:45→20:34)
[2021-01-27] MEDS: ONDANSETRON INJ 4 MG/2 ML VIAL IV PUSH (09:48)
[2021-01-27] MEDS: LACTATED RINGERS 1,000 ML 150 ML IV CONT (10:35)
--- NOTE | 2021-01-27 15:05 | PC.NURSE ---
On 01/27/21, the student, Sruthi Ya [facility] Health Unit Clerk, provided care and completed [facility] documentation on this patient. I have reviewed the student's documentation and agree with the findings.
[2021-01-27 16:40] LABS: Anion Gap 9 mmol/L (8-16); Blood Urea Nitrogen 3 mg/dL (9-20); Carbon Dioxide 25 mmol/L (22-30); Chloride 100 mmol/L (98-107); Potassium 3.5 mmol/L (3.4-5.0); Sodium 134 mmol/L (137-145)
[2021-01-27 16:41] LABS: Alanine Aminotransferase 34 U/L (4-50); Albumin Level 4.2 g/dL (3.5-5.1); Alkaline Phosphatase 89 U/L (38-126); Aspartate Amino Transferase 47 U/L (17-59); Bilirubin,Total 5.1 mg/dL (0.2-1.3); Estimated CRCL calculation 174 ml/min; Estimated Glomerular Filt Rate > 60; Glucose 112 mg/dL (65-110); Total Protein 7.4 g/dL (6.3-8.2)
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
[2021-01-28] VITALS (11 sets, daily range): BP systolic 119–133; BP diastolic 80–87; PULSE 69–102; RESP 16; TEMP 36.7–37.1; O2SAT 98–99
[2021-01-28] MEDS: FOLIC ACID 1 MG TABLET PO (09:07)
[2021-01-28] MEDS: PANTOPRAZOLE SODIUM IV 40 MG VIAL IV PUSH (09:07)
[2021-01-28] MEDS: NICOTINE (*PBKC) 14 MG PATCH 1 PATCH TRANSDERM (09:07)
[2021-01-28] MEDS: THIAMINE HCL 100 MG TABLET PO (09:07)
--- NOTE | 2021-01-28 10:20 | WPDANESPN ---
Anes - Prog Note Post-Op Date/Time: 01/28/21 10:20 Cardiovascular status: normal Respiratory status: normal Airway patency: baseline Mental status: baseline Post-Op hydration status: normal Vital Signs: Last Vital Signs Temp 98.4 F 01/28/21 07:55 Pulse 102 H 01/28/21 07:55 Resp 16 01/28/21 07:55 BP 126/83 01/28/21 07:55 Pulse Ox 98 01/28/21 07:55 Pain Score (VAS): 05/24 I/O: Intake & Output 01/27/21 01/28/21 01/28/21 23:59 07:59 15:59 Intake Total 1240 700 Output Total 1100 Balance 1240 -400 Laboratory Tests 01/27/21 04:34 01/27/21 12:23 01/27/21 12:23 Sodium 134 L Potassium 3.5 Chloride 100 Carbon Dioxide 25 Anion Gap 9 BUN 3 L Creatinine 0.60 L Estim Creat Clear Calc 174 Estimated GFR > 60 Glucose 112 H Calcium 9.0 Total Bilirubin 5.1 H AST 47 ALT 34 Alkaline Phosphatase 89 Total Protein 7.4 Albumin 4.2 Patient Feedback: Patient satisfied with anesthetic care.
--- NOTE | 2021-01-28 11:21 | WPDGIPROGNO ---
Progress Note: A&P Assessment and Plan (1) Hematemesis: Code(s): K92.0 - Hematemesis Status: Acute Assessment and Plan: No additional bleeding recorded. It appears to be related to his erosive esophagitis (2) History of alcohol abuse: Code(s): F10.11 - Alcohol abuse, in remission Status: Acute Assessment and Plan: Patient with alcohol abuse. Counseled to avoid alcohol. Perhaps a support group may be of some support. (3) Erosive esophagitis: Code(s): K22.10 - Ulcer of esophagus without bleeding Status: Acute Assessment and Plan: Patient with significant erosive esophagitis on EGD. This was source of recent bleeding. Plan is for patient be discharged on pantoprazole 40mg p.o. b.i.d.. After a month or 2 he may decrease to once daily. [place] diet is encouraged. Hopefully can be discharged today. Subjective Date/time seen: 01/28/21 11:21 Patient feels good today. No more nausea vomiting. Tolerating diet without difficulty. No evidence for additional bleeding. Review of Systems Review of Systems: All systems reviewed & are unremarkable except as noted in HPI and below Exam Narrative: Physical exam reveals patient be alert comfortable at rest he is anicteric. Lungs are clear. Heart without murmur. Abdomen bowel sounds present soft nontender with no organomegaly. Objective Data Vital Signs Vital Signs: Vital Signs - 24 hr 01/27/21 11:25 01/27/21 11:35 01/27/21 12:00 Temperature 98.3 F Pulse Rate 71 78 108 H Respiratory Rate 20 25 H 12 Blood Pressure 129/91 H 133/99 H 143/98 H Pulse Oximetry 100 100 99 01/27/21 14:00 01/27/21 15:15 01/27/21 16:00 Temperature 98.7 F Pulse Rate 77 109 H Respiratory Rate 14 Blood Pressure 131/85 131/85 Pulse Oximetry 99 01/27/21 18:00 01/27/21 20:00 01/27/21 22:00 Temperature 98.7 F Pulse Rate 88 93 88 Respiratory Rate 16 Blood Pressure 140/78 Pulse Oximetry 99 01/28/21 00:00 01/28/21 02:00 01/28/21 04:00 Temperature 98.1 F 98.0 F Pulse Rate 87 80 76 Respiratory Rate 16 16 Blood Pressure 128/87 133/80 Pulse Oximetry 99 99 01/28/21 06:00 01/28/21 07:49 01/28/21 07:55 Temperature 98.4 F 98.4 F Pulse Rate 76 102 H 102 H Respiratory Rate 16 16 Blood Pressure 126/83 126/83 Pulse Oximetry 98 98 01/28/21 08:00 01/28/21 10:00 01/28/21 11:12 Temperature 98.8 F Pulse Rate 93 98 92 Respiratory Rate 16 Blood Pressure 119/85 Pulse Oximetry 98 Intake/Output Intake/Output: Intake & Output 01/25/21 01/26/21 01/27/21 01/28/21 23:59 23:59 23:59 23:59 Intake Total 2980 1590 700 Output Total 1800 1100 Balance 2507 -669 -400 Meds/Results Medications: Active Medications Generic Name Dose Route Start Last Admin Trade Name Freq PRN Reason Stop Dose Admin Albuterol 2 puff 01/26/21 17:25 Albuterol Sulfate (*Sp) Aerosol 1 Puff INHALATION Q6HRT PRN Shortness Of Breath Chlordiazepoxide HCl 10 mg 01/26/21 12:40 01/27/21 20:38 Chlordiazepoxide (*Crx) 10 Mg Capsule PO 10 mg Q6H PRN Administration Anxiety Folic Acid 1 mg 01/27/21 09:00 01/28/21 09:07 Folic Acid 1 Mg Tablet PO 1 mg DAILY FRANCISCO JAVIER Administration Lorazepam 1 mg 01/26/21 12:40 01/26/21 23:52 Lorazepam Inj (*Crx) 2 Mg/Ml Vial IV PUSH 1 mg Q6H PRN Administration Anxiety Nicotine 1 patch 01/27/21 09:00 01/28/21 09:07 Nicotine (*Pbkc) 14 Mg Patch TRANSDERM 1 patch QAM FRANCISCO JAVIER Administration Ondansetron HCl 4 mg 01/26/21 12:44 01/27/21 09:48 Ondansetron Inj 4 Mg/2 Ml Vial IV PUSH 4 mg Q4H PRN Administration nausea Pantoprazole Sodium 40 mg 01/26/21 21:00 01/28/21 09:07 Pantoprazole Sodium Iv 40 Mg Vial IV PUSH 40 mg Q12HR FRANCISCO JAVIER Administration Thiamine HCl 100 mg 01/27/21 09:00 01/28/21 09:07 Thiamine Hcl 100 Mg Tablet PO 100 mg QAM ON LICENSE OF [facility] Administration Radiology Results: ITS Impressions C
[2021-01-28 11:53] LABS: Hematocrit 47.1 % (42.0-52.0); Hemoglobin 16.1 g/dL (14.0-18.0); Immature Platelet Fraction Pct 5.8 % (0.9-11.2); Mean Corpuscular HGB Conc 34.2 g/dl (32-36); Mean Corpuscular Hemoglobin 34.5 pg (26-34); Mean Corpuscular Volume 101.1 fl (80-100); Mean Platelet Volume 10.3 fl (7.4-10.4); Platelet Count Result 129 k/mm3 (150-375); Red Blood Count 4.66 M/mm3 (4.6-6.20); Red Cell Distribution Width 12.7 % (11.5-14.5); White Blood Count 9.2 K/mm3 (4.5-10.0)
[2021-01-28 12:03] LABS: Alanine Aminotransferase 37 U/L (4-50); Alkaline Phosphatase 73 U/L (38-126); Anion Gap 8 mmol/L (8-16); Aspartate Amino Transferase 49 U/L (17-59); Bilirubin,Total 1.9 mg/dL (0.2-1.3); Blood Urea Nitrogen 7 mg/dL (9-20); Carbon Dioxide 26 mmol/L (22-30); Chloride 100 mmol/L (98-107); Estimated CRCL calculation 134 ml/min; Estimated Glomerular Filt Rate > 60; Glucose 106 mg/dL (65-110); Magnesium 2.1 mg/dL (1.6-2.3); Potassium 4.2 mmol/L (3.4-5.0); Sodium 134 mmol/L (137-145)
--- NOTE | 2021-01-28 13:26 | PCDIET ---
Nutrition Follow-Up Complete: Nutrition Diagnosis: Inadequate oral intake related to GI bleed as evidenced by NPO status. Nutrition Goal: Patient to meet estimated nutritional needs. Goal in progress. Patient now consuming 100% of meals on bland diet. EGD findings noted. No additional recommendations at this time. Last recorded weight is 81.6 kg which is down from admission. Bowel Motility: No documented BM as of yet. Labs Reviewed. Meds Noted: Librium, Folic Acid, Ativan, Zofran, Protonix, Vitamin B1 Additional Notes: No documented skin breakdown. Will continue to monitor with same goal. Nutrition Monitoring and Evaluation: Follow up in 5 days.
--- NOTE | 2021-01-28 14:31 | PC.NURSE ---
On 01/28/21, the student, [Pat Lawrence], provided care and completed [facility] documentation on this patient. I have reviewed the student's documentation and agree with the findings.
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
== END 2021-01-28 15:23 | disposition home or self-care (01) ==
LOC: ANHED 14:53 → ANHIMU 01-27 07:06
PROVIDERS: Internal Medicine Gastroenterology; Nurse Practitioner; Physician Assistant; Admitting Provider Internal Medicine; Emergency Provider Emergency Medicine; PCP Nurse Practitioner Psychiatric/Mental Health; Visit Provider Family Medicine
PROC: 0DJ08ZZ Inspection of Upper Intestinal Tract, Via Natural or Artificial Opening Endoscopic (ICD-10-PCS; CPT 43235; principal; 2021-01-27 11:30)
DX: K22.10 Ulcer of esophagus without bleeding (principal); F10.230 Alcohol dependence with withdrawal, uncomplicated; K92.0 Hematemesis; F17.210 Nicotine dependence, cigarettes, uncomplicated; E87.6 Hypokalemia
CPT/HCPCS: 43235; 36415; 71046; 71250; 74177; 80048; 80053; 80307; 81003; 83605; 83615; 83690; 83735; 84443; 85014; 85018; 85025; 85027; 85055; 85610; 85730; 86140; 93005; 96361; 96365; 96366; 96368; 96375; 96376; 99285; A9270; C9113; G0378; G0379; J1200; J2060; J2405; J2704; J2765; J3411; J3475; J3480; J7030; J7120; Q9967

== ENCOUNTER 2021-03-07 14:41 | Emergency (ER) | payer OTHER, SELFPAY ==
[2021-03-07 14:52] VITALS: BP 125/92; PULSE 123; RESP 18; TEMP 37.3; O2SAT 100
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
[2021-03-07] MEDS: LORazepam (*CRX) 1 MG TABLET 2 MG (15:17)
--- NOTE | 2021-03-07 15:17 | PC.NURSE ---
vorb to give pt ativan 2 mg po x1 from dr lynn
--- NOTE | 2021-03-07 15:30 | PC.NURSE ---
pt walked out of ambulance bay, pt asked multiple times to return. pt responded with I need to smoke a cigarette, and ill come back in. pt did return, it was explained to him that he can not leave until screened by Crisis.
--- NOTE | 2021-03-07 15:35 | PC.NURSE ---
pt again left out the back door, Dr Brunson stated that, pt was low risk and could leave . spoke to pt about leaving the ED, encouraged him to return to ED until his father arrives to pickling drum operator the pt. pt agreeable at this time
== END 2021-03-07 16:03 | disposition left against medical advice (07) ==
PROVIDERS: Emergency Provider Emergency Medicine; PCP Nurse Practitioner Psychiatric/Mental Health
DX: F10.10 Alcohol abuse, uncomplicated (principal); K21.9 Gastro-esophageal reflux disease without esophagitis; F17.210 Nicotine dependence, cigarettes, uncomplicated; Y90.9 Presence of alcohol in blood, level not specified
CPT/HCPCS: 99283; A9270

== ENCOUNTER 2021-04-18 16:24 | Emergency (ER) | payer OTHER, SELFPAY ==
--- NOTE | ~2021-04-18 | XR_ITS ---
EXAMINATION: XR wrist RT min 3V DATE: 04/18/2021 17:01 INDICATION: Right wrist injury and pain. TECHNIQUE: 4 views of right wrist were obtained. COMPARISON: None. FINDINGS: Bone alignment is normal. No acute fracture. There is an old healed fracture deformity of h ead of fifth metacarpal. Joint spaces are normal. IMPRESSION: 1. No acute fracture. Reviewed, dictated and finalized at location A. STRINGER IMPRESSION: 1. No acute fracture.
[2021-04-18 16:31] VITALS: BP 132/95; PULSE 130; RESP 16; TEMP 36.6; O2SAT 100
[2021-04-18 18:14] VITALS: BP 153/87; PULSE 119; RESP 19; O2SAT 96
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
[2021-04-18] MEDS: oxyCODONE/ACETAMINOPHEN (*CRX) 5-325 MG TABLET 2 TABLET PO (18:25)
--- NOTE | 2021-04-18 19:33 | PC.NURSE ---
Right orthoglass cockup wrist splint cap refill <2sec post application tolerated well arm sling applied
[2021-04-18 19:54] VITALS: BP 132/88; PULSE 84; RESP 18; O2SAT 95
== END 2021-04-18 19:54 | disposition home or self-care (01) ==
PROVIDERS: Emergency Provider Nurse Practitioner
DX: S54.21XA Injury of radial nerve at forearm level, right arm, initial encounter (principal); S63.501A Unspecified sprain of right wrist, initial encounter; F17.210 Nicotine dependence, cigarettes, uncomplicated; K21.9 Gastro-esophageal reflux disease without esophagitis; W01.0XXA Fall on same level from slipping, tripping and stumbling without subsequent striking against object, initial encounter
CPT/HCPCS: 73110; 99284; A4565; A9270

== ENCOUNTER 2021-08-01 21:32 | Emergency (ER) | payer SELFPAY ==
--- NOTE | ~2021-08-01 | CT_ITS ---
EXAMINATION: CT facial & cervical spine wo DATE: 08/01/2021 22:10 INDICATION: Status post fall. Neck and head pain. TECHNIQUE: Computed tomography (CT) of the maxillofacial region and cervical spine was performed with out intravenous contrast. The dose-length product was 456.47 mGy-cm. Automated exposure control and i terative reconstruction technique were employed. COMPARISON: None FINDINGS: MAXILLOFACIAL CT: There are fractures of the nasal bones. There is leftward nasal septal deviation. Mandible intact. Th ere is extensive mucosal thickening of the paranasal sinuses. No evidence for orbital blowout fractur e. Lamina papyracea is intact bilaterally. Zygomatic arches are normal. Pterygoid plates are normal. CERVICAL SPINE CT: Straightening of cervical lordosis. Odontoid process within normal limits. No fracture, subluxation o r dislocation. Odontoid process is normal. Craniovertebral junction is normal. Lung apices demonstrat e mild paraseptal emphysema. No significant paraspinal soft tissue abnormality. No evidence for perch ed facet. IMPRESSION: 1. Bilateral nasal fractures. 2: Moderate sinus disease. Reviewed, dictated and finalized at location A.
--- NOTE | ~2021-08-01 | CT_ITS ---
EXAMINATION: CT abdomen pelvis w con DATE: 08/01/2021 23:47 INDICATION: Status post fall. Intoxication. TECHNIQUE: Computed tomography (CT) of the abdomen and pelvis was performed with 100 cc Omnipaque 350 intravenous contrast. The dose-length product was 366.41 mGy-cm. Automated exposure control and iter ative reconstruction technique were employed. COMPARISON: CT dated 01/26/2021. FINDINGS: Lung bases are unremarkable. Heart size normal. No significant pleural or pericardial effus ion. No significant vascular abnormality. No lymphadenopathy. Nonobstructive bowel gas pattern. There is mild segmental thickening of the descending and sigmoid colon which may be due to underdiste ntion, although mild colitis cannot be excluded. Fatty infiltration of the liver. Gallbladder is pres ent and mildly distended. The spleen, pancreas, adrenal glands are unremarkable. There are several bi lateral renal cysts. There are additional intermediate density masses in both kidneys including a 2.5 cm mass mid lateral aspect of the right kidney, image 61 measuring 53 Hounsfield units a 1.8 cm mass mid lateral aspect of the left kidney, image 66, measuring 66 Hounsfield units and a 1.5 cm mass pos terior margin of the left kidney measuring 72 Hounsfield units. These most likely are complex protein aceous or hemorrhagic cyst, although further evaluation with MRI with/without contrast is recommended on a nonemergent basis. No free air or free fluid. There are acute nondisplaced fractures of the lef t seventh, eighth and ninth ribs laterally. No associated pneumothorax or significant hemothorax. IMPRESSION: 1. Acute left seventh, eighth and ninth rib fractures laterally. 2: Multiple slightly hyperdense masses of both kidneys which are most likely complicated cysts, altho ugh further evaluation with MRI is recommended to exclude abnormal enhancement. 3: Mild segmental thickening of the descending and sigmoid colon, most likely due to underdistention although mild colitis is not excluded. Reviewed, dictated and finalized at location A. IMPRESSION: 1. Acute left seventh, eighth and ninth rib fractures laterally. 2: Multiple slightly hyperdense masses of both kidneys which are most likely co mplicated cysts, although further evaluation with MRI is recommended to exclude abnormal enhancement. 3: Mild segmental thickening of the descending and sigmoid colon, most likely due to underdistention although mild colitis is not excluded.
--- NOTE | ~2021-08-01 | CT_ITS ---
EXAMINATION: CT BRAIN W/O DATE: 08/01/2021 22:10 INDICATION: Status post fall. Loss of consciousness. TECHNIQUE: Computed tomography (CT) of the head was performed without intravenous contrast. The dose- length product was 681.00 mGy-cm. Automated exposure control and iterative reconstruction technique w ere employed. COMPARISON: No prior studies for comparison. FINDINGS: Normal brain parenchymal volume for age. Normal iqbal-white differentiation. No acute intrac ranial hemorrhage, infarction, mass or mass effect. No ventriculomegaly or midline shift. Midline sagittal images demonstrate a normal corpus callosum, c raniovertebral junction and sella turcica. Basilar cisterns are patent. There is mild mucosal thickening of the maxillary sinuses. No depressed skull fractures. IMPRESSION: 1. No acute intracranial abnormality. Reviewed, dictated and finalized at location A.
[2021-08-01 21:27] VITALS: BP 143/90; PULSE 99; RESP 18; TEMP 36.5; O2SAT 98
--- NOTE | 2021-08-01 21:33 | ED.FALL ---
HPI - Fall General Chief Complaint: Fall <Moon Balderas PA-C - Last Filed: 08/02/21 05:41> Stated Complaint: fall c loc and facial injury <AZAM Conteh Last Filed: 08/02/21 05:41> Source: patient and EMS <Moon Balderas PA-C - Last Filed: 08/02/21 05:41> Mode of arrival: EMS <Moon Balderas PA-C - Last Filed: 08/02/21 05:41> Limitations: intoxication <AZAM Conteh Last Filed: 08/02/21 05:41> History of Present Illness HPI Narrative: Patient 31-year-old male who presents the ED, via EMS, with reported fall. Per EMS report, the patient was found unconscious outside by his friends today, appeared to have fallen. EMS was notified. Upon EMS arrival, patient was awake and ambulatory with several abrasions, bruising, bleeding on his face and body. C-spine was placed. Patient does not remember how fall occurred. He does state he believes he was walking from his car to go inside his house when he fell. He states he was not driving. Patient is a chronic alcohol user and has experienced withdrawal symptoms in the past when he has not drank. He did admit to drinking half a fifth of liquor today. He is unsure how long he was outside on the ground. He complains of nausea currently, and pain to his nose and L flank. Denies any chest pain, shortness of breath, urinary symptoms. <Moon Balderas PA-C - Last Filed: 08/02/21 05:41> Related Data Allergies/Adverse Reactions: Allergies Allergy/AdvReac Type Severity Reaction Status Date / Time Penicillins Allergy Unknown Verified 08/01/21 21:39 <Moon Balderas PA-C - Last Filed: 08/02/21 05:41> Review of Systems Review of Systems: CONSTITUTIONAL: Denies fever, chills, or sweats. ENT: Reports pain to nose. Denies difficulty breathing. CARDIOVASCULAR: Denies chest pain. RESPIRATORY: Denies dyspnea. GASTROINTESTINAL: Reports nausea. Denies abdominal pain, vomiting, or diarrhea. GENITOURINARY: Denies dysuria or hematuria. SKIN: Reports abrasions to body. Denies rash or itching. MUSCULOSKELETAL: Reports L flank pain. NEUROLOGIC: Reports head injury w/ LOC. Denies numbness, or weakness. <Moon Balderas PA-C - Last Filed: 08/02/21 05:41> All systems reviewed & are unremarkable except as noted in HPI and below <Moon Balderas PA-C - Last Filed: 08/02/21 05:41> PMFSH Past Medical History Medical History: Medical History (Updated 08/02/21 @ 05:27 by Moon Balderas PA-C) Alcoholism <Moon Balderas PA-C - Last Filed: 08/02/21 05:41> Surgical History Surgical History: Surgical History (Updated 08/01/21 @ 23:26 by Moon Balderas PA-C) No pertinent past surgical history <Moon Balderas PA-C - Last Filed: 08/02/21 05:41> Social History Social History: Social History (Updated 08/01/21 @ 23:26 by Moon Balderas PA-C) Alcohol intake: current <Moon Balderas PA-C - Last Filed: 08/02/21 05:41> Exam Narrative: GENERAL: Mildly disheveled, well-nourished, non-toxic, in no acute distress. HEAD: Normocephalic. Small abrasion to L temporal region. EYES: PERRL/EOMI, conjunctivae clear bilaterally. NOSE: Mild swelling tenderness and ecchymosis of external nose. Skin avulsion to tip of nose. No septal hematoma. Nares patent. THROAT: Chipped front tooth. No malocclusion. No trismus. No erythema to posterior pharynx. NECK: Supple. No adenopathy, no masses. RESPIRATORY: Airway patent, respirations nonlabored. Clear to auscultation bilaterally, no rales, rhonchi, wheezing. CARDIOVASCULAR: Regular rate and rhythm without murmurs, rubs, or gallops. Peripheral pulses 2+ and equal bilaterally. ABDOMINAL: Soft, nontender, nondistended, no hepatosplenomegaly. Normoactive BS. MUSCULOSKELETAL: Moves all extremities. Strength/ROM intact. Tender to palpation of lower left anterior rib cage. No edema. No calf tenderness. SKIN: Warm, dry, normal color. No rashes. Scattering ecchymosis to BLE in various states of healing. Minor ski
[2021-08-01] MEDS: SODIUM CHLORIDE 0.9% IV 1,000 ML 999 ML IV CONT (22:21)
--- NOTE | 2021-08-01 22:28 | PC.NURSE ---
Pt attempted to give urine sample at this time. Unsuccessful. Pt refused straight catheter.
[2021-08-01 22:30] LABS: Basophils Absolute Auto 0.1 K/mm3 (0.0-0.1); Basophils Percent Auto 0.4 % (0.2-1.2); Eosinophils Percent Auto 0.1 % (0-4.4); Hematocrit 47.3 % (42.0-52.0); Immature Granulocyte Absolute 0.09 K/mm3 (0.00-0.031); Immature Granulocyte Percent A 0.7 % (0-0.5); Lymphocytes Absolute Auto 1.56 K/mm3 (0.9-3.2); Lymphocytes Percent Auto 11.6 % (18.3-44.2); Mean Corpuscular HGB Conc 35.9 g/dl (32-36); Mean Corpuscular Hemoglobin 35.6 pg (26-34); Mean Corpuscular Volume 99.2 fl (80-100); Mean Platelet Volume 9.6 fl (7.4-10.4); Monocytes Absolute Auto 0.6 K/mm3 (0.1-0.6); Monocytes Percent Auto 4.5 % (2.6-8.5); Neutrophils Absolute Auto 11.1 K/mm3 (1.3-6.7); Neutrophils Percent Auto 82.7 % (45.5-73.1); Platelet Count Result 186 k/mm3 (150-375); Red Blood Count 4.77 M/mm3 (4.6-6.20); Red Cell Distribution Width 11.9 % (11.5-14.5); White Blood Count 13.4 K/mm3 (4.5-10.0)
[2021-08-01 22:39] LABS: Anion Gap 18 mmol/L (8-16); Blood Urea Nitrogen 7 mg/dL (9-20); Calcium 8.1 mg/dL (8.4-10.2); Carbon Dioxide 26 mmol/L (22-30); Chloride 96 mmol/L (98-107); Estimated CRCL calculation 133 ml/min; Estimated Glomerular Filt Rate > 60; Glucose 137 mg/dL (65-110); Potassium 3.1 mmol/L (3.4-5.0); Sodium 140 mmol/L (137-145)
[2021-08-01] MEDS: ONDANSETRON INJ 4 MG/2 ML VIAL IV PUSH (23:22)
[2021-08-01 23:41] LABS: Creatine Kinase 515 U/L (55-170)
[2021-08-01 23:51] VITALS: BP 114/99; PULSE 116; RESP 14; O2SAT 97
[2021-08-02] MEDS: POTASSIUM CHLORIDE 20 MEQ TABLET 40 MEQ PO (00:02)
[2021-08-02 02:27] VITALS: BP 116/63; PULSE 96; RESP 18; O2SAT 96
[2021-08-02] MEDS: KETOROLAC 30 MG/ML VIAL (*BKC) IV PUSH (03:26)
--- NOTE | 2021-08-02 04:04 | PC.NURSE ---
Pt A&Ox4, able to ambulate with no assistance and steady gait
--- NOTE | 2021-08-02 04:09 | PC.NURSE ---
This RN attempted to call pts father ([phone]) for ride. No answer.
[2021-08-02 05:46] VITALS: BP 120/67; PULSE 103; RESP 19; O2SAT 96
[2021-08-02] MEDS: SODIUM CHLORIDE 0.9% IV 1,000 ML 999 ML IV CONT (05:46)
== END 2021-08-02 07:11 | disposition home or self-care (01) ==
PROVIDERS: Physician Assistant; Emergency Provider Emergency Medicine
DX: S02.2XXA Fracture of nasal bones, initial encounter for closed fracture (principal); S22.42XA Multiple fractures of ribs, left side, initial encounter for closed fracture; F10.20 Alcohol dependence, uncomplicated; R93.422 Abnormal radiologic findings on diagnostic imaging of left kidney; R93.421 Abnormal radiologic findings on diagnostic imaging of right kidney; R93.3 Abnormal findings on diagnostic imaging of other parts of digestive tract; W19.XXXA Unspecified fall, initial encounter
CPT/HCPCS: 36415; 70450; 70486; 72125; 74177; 80048; 82550; 85025; 96361; 96374; 99284; A9270; J1885; J2405; J7030; Q9967